=== PATIENT | male | born 1995 | race Caucasian/White ===

== ENCOUNTER 2018-07-02 01:08 | Emergency (ER) | payer OTHER ==
[2018-07-02] MEDS: IBUPROFEN 600 MG TAB PO (02:50)
== END 2018-07-02 02:59 | disposition home or self-care (01) ==
LOC: M ED 01:08
DX: S93.692A Other sprain of left foot, initial encounter (principal); X50.1XXA Overexertion from prolonged static or awkward postures, initial encounter; Y92.9 Unspecified place or not applicable; Y93.89 Activity, other specified; Y99.9 Unspecified external cause status
CPT/HCPCS: 73630